=== PATIENT | female | born 1990 | race Caucasian/White ===

== ENCOUNTER 2018-04-03 18:47 | Emergency (ER) | payer OTHER, SELFPAY ==
--- NOTE | 2018-04-03 18:53 | ED.ABDPAIN ---
HPI - Abdominal Pain General Chief Complaint: Abdominal Pain Stated Complaint: SENT BY WALK IN FOR POS APPENDICITIS Time Seen by Provider: 04/03/18 18:53 Source: patient Mode of arrival: ambulatory Limitations: no limitations History of Present Illness HPI narrative: 27-year-old female sent over from the walk-in clinic for right lower quadrant abdominal pain and concern for appendicitis. Patient states that she started having symptoms yesterday. Some nausea but no vomiting. No fevers. States that she went to the walk-in clinic because she thought she was having a urinary tract infection because she also has dysuria and frequency and has had urinary tract infections in the past. Patient also states she has a history of ovarian cyst. She states this feels different than her diagnosis of ovarian cyst. Related Data Home Medications Medication Instructions Recorded Confirmed omeprazole 20 mg capsule,delayed 20 mg PO .PRN cap 04/03/18 04/03/18 release Previous Rx's Medication Instructions Recorded sulfamethoxazole-trimethoprim 1 tab PO BID 3 Days #6 tab 04/03/18 [Bactrim DS] Allergies Allergy/AdvReac Type Severity Reaction Status Date / Time azithromycin [From Zithromax] Allergy Verified 04/03/18 19:04 Review of Systems Constitutional Denies fever(s) ENT Ears, Nose, Mouth, and Throat: Denies vertigo and Denies dizziness Cardiovascular Denies chest pain and Denies dyspnea Respiratory Denies dyspnea Gastrointestinal Gastrointestinal: Reports abdominal pain, Reports nausea and Denies vomiting Genitourinary Reports dysuria, Reports urinary urgency and Denies vaginal discharge Musculoskeletal Denies myalgias and Denies arthralgias Integumentary/Breasts Denies rash Neurologic Denies vertigo and Denies dizziness Hematologic/Lymphatic Denies easy bleeding and Denies easy bruising [facility] Medical History Healthy adult (Acute) Social History Smoking Status: Never smoker alcohol intake: current Exam Initial Vital Signs Initial Vital Signs: Vital Signs Temperature 98.2 F 04/03/18 19:04 Pulse Rate 87 04/03/18 19:04 Respiratory Rate 16 04/03/18 19:04 Blood Pressure 127/87 04/03/18 19:04 Pulse Oximetry 100 04/03/18 19:04 Const General: cooperative, comfortable, well developed, well groomed and No acute distress Orientation: alert, awake and oriented x3 HENMT Head: normal to inspection and normocephalic Resp Effort & Inspection: normal respiratory effort Auscultation: clear to auscultation bilaterally Cardio Rate: regular rate Rhythm: regular rhythm GI Inspection: non-distended Palpation: soft, No firm and tender (Right lower quadrant) Skin Lesions: no lesions Rashes: no rashes Neuro General: alert, awake and oriented x3 Extrem General: normal to inspection and capillary refill normal Psych Appearance: grossly normal and well kempt Course Orders Ordered: ED Orders 04/03/18 19:09 Complete Blood Count AUTO DIFF Stat Comprehensive Metabolic Panel Stat Lipase Stat Procalcitonin Stat 04/03/18 19:16 Test Serum,Qual Stat 04/03/18 19:17 CT abdomen pelvis w con Stat 04/03/18 19:25 Lactate (Lactic Acid) Stat 04/03/18 20:52 Urinalysis and Microscopic Stat Urine Culture Stat Discontinued Medications Sodium Chloride (Normal Saline 0.9%) 1,000 mls @ 1,000 mls/hr IV BOLUS ONE Stop: 04/03/18 19:52 Last Infusion: 04/03/18 20:31 Dose: 0 mls/hr Admin: 04/03/18 19:29 Dose: 1,000 mls/hr Trimethoprim/Sulfamethoxazole (Bactrim Ds) 1 tab PO NOW ONE Stop: 04/03/18 21:10 Last Admin: 04/03/18 21:25 Dose: 1 tab Vital Signs - 8 hr 04/03/18 19:04 04/03/18 21:13 Temperature 98.2 F Pulse Rate 87 73 Respiratory Rate 16 16 Blood Pressure 127/87 Blood Pressure [Right Arm] 124/79 Pulse Oximetry 100 100 MDM - Abdominal Pain Medical Records Attestation: I reviewed the patient's medical records. Lab Data Attestation: I reviewed the patient's lab results. Result diagrams: 04/03/18 19:09 04/03/18 19:09 Lab Results 04/03/18 04/03/18 04/03/18 Range/Units 19: 19:09 19:09 WBC 9.6 (4.5-11.0) X10^3/uL RBC 4.82 (4.0-5.2) X10^6/uL Hgb 14.2 (12.0-16.0) g/dL Hct 41.6 (36-46) % MCV 86.4 (80-100) fL MCH 29.5 (26-34) PG MCHC 34.1 (30-36) % RDW 13.1 (11.6-14.8) % Plt Count 348 (150-400) X10^3/uL Neut % (Auto) 48.6 L (50-75) % Lymph % (Auto) 37.4 (25-40) % [place] % (Auto) 8.8 (3-14) % Eos % (Auto) 4.9 H (2-4) % Baso % (Auto) 0.3 (0-2) % Neut # (Auto) 4700 (7384-2908) /uL Sodium 143 (137-145) mmol/L Potassium 4.0 (3.4-5.1) mmol/L Chloride 103 (98-107) mmol/L Carbon Dioxide 26 (22-32) mmol/L BUN 13 (7-17) mg/dL Creatinine 0.70 (0.52-1.04) mg/dL Estimated GFR > 60.0 (>60) mL/min BUN/Creatinine Ratio 18.6 (6-22) Glucose 81 (70-100) mg/dL Lactate (0.7-2.1) mmol/L Calcium 9.3 (8.4-10.2) mg/dL Total Bilirubin 0.5 (0.2-1.3) mg/dL AST 34 (14-36) IU/L ALT 35 (9-52) IU/L Alkaline Phosphatase 97 (38-126) U/L Total Protein 7.7 (6.3-8.2) g/dL Albumin 4.4 (3.5-5.0) g/dL Globulin 3.3 (1.7-4.1) g/dL Albumin/Globulin Ratio 1.3 (1.0-2.8) Lipase 158 (23-300) U/L Procalcitonin < 0.05 (<0.5) ng/mL Serum , Qual (Negative) Urine Color Urine Appearance Urine pH (4.5-8.0) Ur Specific [place] (1.000-1.035) Urine Protein (Negative) Urine Glucose (UA) (Normal) g/dL Urine Ketones (NEGATIVE) Urine Occult Blood (Negative) Urine Nitrate (Negative) Urine Bilirubin (NEGATIVE) Urine Urobilinogen (0.2) E.U./dL Ur Leukocyte Esterase (NEGATIVE) Urine RBC (0-5/HPF) Urine WBC (0-5/HPF) Ur Squamous Epith Cells Urine Bacteria (None) Ur Culture Indicated? Micro UA Comment 04/03/18 04/03/18 04/03/18 Range/Units 19:16 19:25 20:52 WBC (4.5-11.0) X10^3/uL RBC (4.0-5.2) X10^6/uL Hgb (12.0-16.0) g/dL Hct (36-46) % MCV (80-100) fL MCH (26-34) PG MCHC (30-36) % RDW (11.6-14.8) % Plt Count (150-400) X10^3/uL Neut % (Auto) (50-75) % Lymph % (Auto) (25-40) % [place] % (Auto) (3-14) % Eos % (Auto) (2-4) % Baso % (Auto) (0-2) % Neut # (Auto) (9290-2508) /uL Sodium (137-145) mmol/L Potassium (3.4-5.1) mmol/L Chloride (98-107) mmol/L Carbon Dioxide (22-32) mmol/L BUN (7-17) mg/dL Creatinine (0.52-1.04) mg/dL Estimated GFR (>60) mL/min BUN/Creatinine Ratio (6-22) Glucose (70-100) mg/dL Lactate 0.8 (0.7-2.1) mmol/L Calcium (8.4-10.2) mg/dL Total Bilirubin (0.2-1.3) mg/dL AST (14-36) IU/L ALT (9-52) IU/L Alkaline Phosphatase (38-126) U/L Total Protein (6.3-8.2) g/dL Albumin (3.5-5.0) g/dL Globulin (1.7-4.1) g/dL Albumin/Globulin Ratio (1.0-2.8) Lipase (23-300) U/L Procalcitonin (<0.5) ng/mL Serum , Qual Negative (Negative) Urine Color Yellow Urine Appearance Clear Urine pH 7.0 (4.5-8.0) Ur Specific [place] <=1.005 (1.000-1.035) Urine Protein Negative (Negative) Urine Glucose (UA) Negative (Normal) g/dL Urine Ketones Negative (NEGATIVE) Urine Occult Blood Negative (Negative) Urine Nitrate Negative (Negative) Urine Bilirubin Negative (NEGATIVE) Urine Urobilinogen 0.2 (0.2) E.U./dL Ur Leukocyte Esterase Trace H (NEGATIVE) Urine RBC None seen (0-5/HPF) Urine WBC 0-1/hpf (0-5/HPF) Ur Squamous Epith Cells 0-1 /hpf Urine Bacteria Occasional (0-1) (None) Ur Culture Indicated? Specimen cultured Micro UA Comment Not Reportable Point of care testing: Point of Care Testing Test Results Negative Imaging Data CT scan - abdomen: Radiologist's impression: PROCEDURE: CT ABDOMEN PELVIS W CON INDICATIONS: Right-sided abdominal pain concern for appendicitis TECHNIQUE: After the administration of intravenous contrast, 5 mm thick sections acquired from the diaphragm to the symphysis. 5 mm coronal and sagittal reformats were acquired. For radiation dose reduction, the following was used: automated exposure control, adjustment of mA and/or kV according to patient size. COMPARISON: [facility], CT, ANGIO CHEST, 05/18/2010, 22:04. [facility], CT, ABD/PELVIS W/CON (PNL), 03/28/2014, 0:07. FINDINGS: Image quality: Excellent. ABDOMEN: Lung bases: Left basilar dependent atelectasis. Heart size is normal. Solid organs: A small 8 mm hepatic hypodensity left hepatic lobe appears unchanged since 03/28/2014, probably a cyst. Liver is normal in size and enhancement. Gallbladder is not well-seen, probably contracted. Biliary system is non dilated. Pancreas enhances normally. Spleen is normal in size and enhancement. No adrenal nodules. Kidneys demonstrate normal size and enhancement, without hydronephrosis. Peritoneum and bowel: Appendix is normal. Bowel loops demonstrate normal wall thickness and caliber. No free fluid or air. Nodes and vessels: There are numerous small mesenteric lymph nodes suggesting adenitis. No enlarged retroperitoneal or mesenteric lymph nodes are present. Aorta and inferior vena cava are normal in size. Miscellaneous: No ventral hernias. PELVIS: Genitourinary: Bladder wall thickness is normal. There is an IUD in uterus. No pathological free fluid. Miscellaneous: No inguinal hernias or adenopathy. Bones: No suspicious bony lesions. No vertebral body compression fractures. IMPRESSION: 1. No evidence for acute appendicitis. 2. Mild nonspecific mesenteric adenitis. 3. An IUD in uterus. Dictated by: Anthony Barcenas M.D. on 04/03/2018 at 20:25 Approved by: Anthony Barcenas M.D. on 04/03/2018 at 20:31 [facility] Narrative Medical decision making narrative: Patient with a benign abdominal exam. CT scan does not show any signs of appendicitis. Does not mention anything about ovarian cyst however the patient states that this pain is different from her prior diagnosis ovarian cyst. She does having dysuria. Does have leukocyte esterase and bacteria. Offered patient 2 options to include waiting until urine culture returns before we treat with any antibiotics were going ahead and treating today based on symptoms. The patient states she would like to be treated. She was given her 1st dose of antibiotics here in the ER. There was a culture obtained. Informed her that we would call if we needed to change his antibiotics. Will hold on further workup for now. She was given return precautions. She expressed understanding and agreement with plan. Discharge Plan Departure Patient Disposition: Home Clinical Impression: Abdominal pain, Urinary tract infection Discharge Date/Time: 04/03/18 21:29 Interventions: ED Discharge Assessment Last Done: 04/03/18 21:28 Instructions: DI for Urinary Tract Infection (UTI), DI for Acute Abdomen Activity Restrictions/Additional Instructions: Take the medication as directed. Call your primary care doctor for follow-up. Return to the emergency department for any new or worsening symptoms Prescriptions: New sulfamethoxazole-trimethoprim [Bactrim DS] 800-160 mg tablet 1 tab PO BID 3 Days Qty: 6 RF: 0 No Action omeprazole 20 mg capsule,delayed release(DR/EC) 20 mg PO .PRN RF: 0
[2018-04-03 19:04] VITALS: BP 127/87; PULSE 87; RESP 16; TEMP 36.8; O2SAT 100; BMI 45.6
--- NOTE | 2018-04-03 19:17 | DI.CT.S_ITS ---
PROCEDURE: CT ABDOMEN PELVIS W CON INDICATIONS: Right-sided abdominal pain concern for appendicitis TECHNIQUE: After the administration of intravenous contrast, 5 mm thick sections acquired from the diaphragm to the symphysis. 5 mm coronal and sagittal reformats were acquired. For radiation dose reduction, the following was used: automated exposure control, adjustment of mA and/or kV according to patient size. COMPARISON: [facility], CT, ANGIO CHEST, 05/18/2010, 22:04. [facility], CT, ABD/PELVIS W/CON (PNL), 03/28/2014, 0:07. FINDINGS: Image quality: Excellent. ABDOMEN: Lung bases: Left basilar dependent atelectasis. Heart size is normal. Solid organs: A small 8 mm hepatic hypodensity left hepatic lobe appears unchanged since 03/28/2014, probably a cyst. Liver is normal in size and enhancement. Gallbladder is not well-seen, probably contracted. Biliary system is non dilated. Pancreas enhances normally. Spleen is normal in size and enhancement. No adrenal nodules. Kidneys demonstrate normal size and enhancement, without hydronephrosis. Peritoneum and bowel: Appendix is normal. Bowel loops demonstrate normal wall thickness and caliber. No free fluid or air. Nodes and vessels: There are numerous small mesenteric lymph nodes suggesting adenitis. No enlarged retroperitoneal or mesenteric lymph nodes are present. Aorta and inferior vena cava are normal in size. Miscellaneous: No ventral hernias. PELVIS: Genitourinary: Bladder wall thickness is normal. There is an IUD in uterus. No pathological free fluid. Miscellaneous: No inguinal hernias or adenopathy. Bones: No suspicious bony lesions. No vertebral body compression fractures. IMPRESSION: 1. No evidence for acute appendicitis. 2. Mild nonspecific mesenteric adenitis. 3. An IUD in uterus. Dictated by: Anthony Barcenas M.D. on 04/03/2018 at 20:25 Approved by: Anthony Barcenas M.D. on 04/03/2018 at 20:31
[2018-04-03 19:20] LABS: Add Manual Diff / Slide Review NO; Basophils Percent Auto 0.3 % (0-2); Eosinophils Percent Auto 4.9 % (2-4); Hematocrit 41.6 % (36-46); Hemoglobin 14.2 g/dL (12.0-16.0); Lymphocytes Percent Auto 37.4 % (25-40); Mean Corpuscular HGB Conc 34.1 % (30-36); Mean Corpuscular Hemoglobin 29.5 PG (26-34); Mean Corpuscular Volume 86.4 fL (80-100); Monocytes Percent Auto 8.8 % (3-14); Neutrophils Absolute Auto 4700 /uL (1500-7000); Neutrophils Percent Auto 48.6 % (50-75); Platelet Count 348 X10^3/uL (150-400); Red Blood Cell Count 4.82 X10^6/uL (4.0-5.2); Red Cell Distribution Width 13.1 % (11.6-14.8); White Blood Cell Count 9.6 X10^3/uL (4.5-11.0)
[2018-04-03] MEDS: SODIUM CHLORIDE 0.9% 1,000 ML 1000 ML IV (19:29)
[2018-04-03 19:36] LABS: Alanine Aminotransferase 35 IU/L (9-52); Albumin 4.4 g/dL (3.5-5.0); Albumin Globulin Ratio 1.3 (1.0-2.8); Alkaline Phosphatase 97 U/L (38-126); Aspartate Aminotransferase 34 IU/L (14-36); BUN Creatinine Ratio 18.6 (6-22); Bilirubin Total 0.5 mg/dL (0.2-1.3); Blood Urea Nitrogen 13 mg/dL (7-17); Calcium 9.3 mg/dL (8.4-10.2); Carbon Dioxide 26 mmol/L (22-32); Chloride 103 mmol/L (98-107); Estimated Glomerular Filt Rate > 60.0 mL/min (>60); Globulin 3.3 g/dL (1.7-4.1); Glucose 81 mg/dL (70-100); HEMOLYSIS < 15 (0-50); Lipase 158 U/L (23-300); Sodium 143 mmol/L (137-145); Total Protein 7.7 g/dL (6.3-8.2)
[2018-04-03 19:44] LABS: Pregnancy Test Serum,Qual Negative (Negative)
[2018-04-03 19:45] LABS: Lactate (Lactic Acid) 0.8 mmol/L (0.7-2.1)
[2018-04-03 19:51] LABS: Procalcitonin < 0.05 ng/mL (<0.5)
[2018-04-03 20:53] LABS: RBC Urine None Seen (0-5/HPF)
[2018-04-03 20:54] LABS: Appearance Urine UA CLEAR; Bilirubin Urine UA NEGATIVE (NEGATIVE); Color Urine UA YELLOW; Glucose Urine UA NEGATIVE (Normal); Ketones Urine UA NEGATIVE (NEGATIVE); Leukocyte Esterase Urine UA TRACE (NEGATIVE); Nitrite Urine UA NEGATIVE (Negative); Occult Blood Urine UA NEGATIVE (Negative); Protein Urine UA NEGATIVE (Negative); Specific Gravity Urine UA <=1.005 (1.000-1.035); Urobilinogen Urine UA 0.2 E.U./dL (0.2)
[2018-04-03 21:02] LABS: Bacteria Urine Occasional (0-1); Culture Indicated Urine Specimen Cultured; Squamous Epithelial Cell Urine 0-1 /HPF; WBC Urine 0-1/HPF (0-5/HPF)
[2018-04-03 21:13] VITALS: BP 124/79; PULSE 73; RESP 16; O2SAT 100
[2018-04-03] MEDS: TRIMETH/SULFA 160/800 (DS) TABLET 1 TAB PO (21:25)
== END 2018-04-03 21:29 | disposition home or self-care (01) ==
PROVIDERS: Emergency Provider Emergency Medicine
DX: N39.0 Urinary tract infection, site not specified (principal); R10.9 Unspecified abdominal pain; R52 Pain, unspecified
CPT/HCPCS: 74177; 80053; 81001; 81025; 83605; 83690; 84145; 84703; 85025; 87077; 87086; 87147; 96360; 99283; 99285; Q9967

== ENCOUNTER 2018-06-04 02:20 | Emergency (ER) | payer OTHER, SELFPAY ==
[2018-06-04 02:22] VITALS: BP 135/108; PULSE 91; RESP 20; TEMP 36.8; O2SAT 99; BMI 38.0
--- NOTE | 2018-06-04 02:44 | ED.URI ---
HPI - URI/Sore Throat General Chief Complaint: Upper Respiratory Symptoms Stated Complaint: sore throat sharp neck pain on right Time Seen by Provider: 06/04/18 02:31 Source: patient Mode of arrival: ambulatory Limitations: no limitations History of Present Illness HPI Narrative: Patient is a 28-year-old female who presents with sore throat mostly on the right which started yesterday. She has actually had strep since April in been on 2 rounds of antibiotics the 1st was amoxicillin the 2nd with penicillin of both 10 days long and she finished penicillin 1 week ago. She has a referral to ENT but has yet to get into them. She was actually started on prednisone to help with her throat. But no antibiotics. She denies difficulty swallowing though it is actually painful. MD Complaint: fever and sore throat Related Data Home Medications Medication Instructions Recorded Confirmed omeprazole 20 mg capsule,delayed 20 mg PO .PRN cap 04/03/18 04/03/18 release Previous Rx's Medication Instructions Recorded amoxicillin-pot clavulanate 1 tab PO Q12H #20 tab 06/04/18 [Augmentin] Allergies Allergy/AdvReac Type Severity Reaction Status Date / Time azithromycin [From Zithromax] Allergy Verified 06/04/18 02:35 Review of Systems Review of Systems ROS Unobtainable: All systems reviewed & are unremarkable except as noted in HPI and below Constitutional Denies chills, Denies fever(s), Denies lethargy and Denies weakness ENT Ears, Nose, Mouth, and Throat: Reports as per HPI Cardiovascular Denies chest pain, Denies irregular heart rhythm, Denies lightheadedness, Denies palpitations, Denies dyspnea, Denies dyspnea on exertion and Denies orthopnea Respiratory Denies cough, Denies dyspnea, Denies dyspnea on exertion and Denies wheezing Gastrointestinal Gastrointestinal: Denies abdominal pain, Denies change in bowel habits, Denies diarrhea, Denies nausea and Denies vomiting Genitourinary Denies hematuria, Denies flank pain, Denies urinary incontinence and Denies urinary urgency Musculoskeletal Denies back pain, Denies muscle weakness, Denies numbness and Denies tingling Integumentary/Breasts Denies pruritus, Denies erythema, Denies rash and Denies wounds Neurologic Denies numbness, Denies tingling and Denies weakness Endocrine Denies palpitations Allergic/Immunologic Denies wheezing PFSH Medical History Healthy adult (Acute) Social History Smoking Status: Never smoker alcohol intake: current Social History Smoking Status: Never smoker alcohol intake: current Exam Initial Vital Signs Initial Vital Signs: Vital Signs Temperature 98.3 F 06/04/18 02:22 Pulse Rate 91 H 06/04/18 02:22 Respiratory Rate 20 06/04/18 02:22 Blood Pressure 135/108 H 06/04/18 02:22 Pulse Oximetry 99 06/04/18 02:22 GENERAL: alert well-appearing young female HEENT: Head atraumatic,EOMI, pupils reactive, neck is supple no cervical lymphadenopathy PHARYNX: Minimal erythema slightly exudative tonsils no uvular swelling or deviation is airway patent CARDIOVASCULAR: Regular rate and rhythm without murmurs, rubs or gallops. RESPIRATORY: Breath sounds equal bilaterally, no wheezes rales or rhonchi. EXTREMITIES: Normal range of motion, no clubbing or edema. Neurovascularly intact NEUROLOGICAL: Alert and oriented x4 SKIN: Warm, dry, no laceration, no petechiae, no rashes or lesions. Course Orders Ordered: Discontinued Medications Amoxicillin/Clavulanate Potassium (Augmentin 875-125 Mg) 1 tab PO NOW ONE Stop: 06/04/18 03:06 Last Admin: 06/04/18 03:12 Dose: 1 tab Vital Signs - 8 hr 06/04/18 02:22 06/04/18 03:21 Temperature 98.3 F 98.4 F Pulse Rate 91 H 83 Respiratory Rate 20 16 Blood Pressure 135/108 H 110/73 Pulse Oximetry 99 98 MDM - URI/Sore Throat Lab Data Point of Care Testing Rapid Strep A Positive MDM Narrative Medical decision making narrative: patient is still positive for strep, mono was considered. at this time patient has recurrent strep she has failed penicillin and amoxicillin will try Augmentin. Discharge Plan Departure Patient Disposition: Home Clinical Impression: Strep pharyngitis Discharge Date/Time: 06/04/18 03:21 Interventions: ED Discharge Assessment Last Done: 06/04/18 03:21 Instructions: DI for Strep Throat Activity Restrictions/Additional Instructions: *You have been diagnosed with Strep pharyngitis *What to do: he may return to work when you have been afebrile for 24 hrs, and overall feeling better. you still require ENT consultation for frequent recurrent strep *Continue to take medications as directed --> FAXED TO [facility] [place] Augmentin 875 twice daily for 10 days - finished prednisone prescription as previously prescribed *Follow up with your primary care provider in 2-3 days, ENT, Dr. Mock, call for follow-up appointment in 1-2 weeks *Return to ER if you should have inability to swallow, increasing pain, or any new, worsening or concerning symptoms Prescriptions: New amoxicillin-pot clavulanate [Augmentin] 875-125 mg tablet 1 tab PO Q12H Qty: 20 RF: 0 No Action omeprazole 20 mg capsule,delayed release(DR/EC) 20 mg PO .PRN RF: 0 Referrals: Chase Mock MD [Physician] - Stand Alone Forms: Work Release Note
[2018-06-04] MEDS: AMOXICILLIN/CLAV 875/125 MG 1 TAB PO (03:12)
[2018-06-04 03:21] VITALS: BP 110/73; PULSE 83; RESP 16; TEMP 36.9; O2SAT 98
== END 2018-06-04 03:21 | disposition home or self-care (01) ==
PROVIDERS: Emergency Provider Emergency Medicine
DX: J02.0 Streptococcal pharyngitis (principal)
CPT/HCPCS: 87880; 99282; 99283

== ENCOUNTER 2018-11-03 06:27 | Day surgery (SDC) | payer OTHER, SELFPAY ==
[2018-10-30 08:28] VITALS: BMI 50.0
[2018-11-03] VITALS (8 sets, daily range): BP systolic 116–158; BP diastolic 70–95; PULSE 73–88; RESP 10–18; TEMP 36.2–36.7; O2SAT 93–100; BMI 51.0
[2018-11-03] MEDS: OXYMETAZOLINE NASAL SPRAY 30 ML 2 SPRAYS NASAL (07:11)
[2018-11-03] MEDS: LACTATED RINGERS 1,000 ML 42 ML IV (07:19)
--- NOTE | 2018-11-03 07:27 | PM.PREOP ---
Pre-operative Note Interval Note History & Physical reviewed/Exam performed by Physician: Yes Changes to H&P: No
[2018-11-03] MEDS: LIDOCAINE 1% W/EPI INJ 5 ML INJ (08:13)
[2018-11-03] MEDS: BUPIVACAINE 0.25% W/ EPI (PF) 10 ML VIAL 5 ML INJ (08:14)
[2018-11-03] MEDS: fentaNYL 100 MCG/2 ML INJ IV ×2 (08:45→08:55)
--- NOTE | 2018-11-03 08:50 | PM.OP.1 ---
Operative Date/Time/Diagnoses Date of procedure: 11/03/18 Time of procedure: 08:50 Pre-op diagnosis: 1. Recurrent acute tonsillitis 2. Possible peritonsillar abscess 3. Chronic tonsillitis 4. Obstructive sleep apnea 5. Tonsillar hypertrophy Post-op diagnosis: same Procedure & Clinicians Procedure: Tonsillectomy and adenoidectomy Same procedure as scheduled: Yes Indications: 28-year-old female with the above diagnoses incompletely managed with medical therapy presents for the above procedure. Following discussion of the material risks benefits complications and alternatives, the patient elected to proceed Surgeon: Chase Mock Click Yes if Unassisted: Yes Anesthesia Type: General and Local Operative Notes Findings: Intact palate and single uvula and 3+ tonsils, inflamed, 2+ adenoids Closure Type: not applicable Specimen(s): none sent Estimated Blood Loss (mL): 10 Blood products transfused: none Procedure in detail: Following identification and confirmation of consent, she was brought to the operating room suite and general endotracheal anesthesia was administered. Head wrap and shoulder roll were placed. Mouth gag was inserted, red rubber catheter inserted through the right nostril and out the mouth to retract the soft palate. under indirect mirror visualization, the adenoid pad was ablated with suction electrocautery on a setting of 40. The left tonsil was resected in the subcapsular plane with suction electrocautery on a setting of 30 followed by hemostasis with same. Right side repeated in the same fashion. Anterior and posterior tonsillar pillars injected with a 1-1 mix of 1% lidocaine 1 100,000 epinephrine and 0.25% Marcaine with 1 to 805223 epinephrine. The procedure was completed without complication and she was extubated in the operating room and taken to recovery room in stable condition. Complications: none Condition: stable Disposition: same day surgery Plan for aftercare: DC home on CPAP
[2018-11-03] MEDS: OXYCODONE/ACETAMINOPHEN 5/325 TABLET 1 TAB PO (09:05)
== END 2018-11-03 09:31 | disposition home or self-care (01) ==
PROVIDERS: Visit Provider Otolaryngology
PROC: (CPT 42821; principal; 2018-11-03 07:45)
DX: J03.91 Acute recurrent tonsillitis, unspecified (principal); G47.33 Obstructive sleep apnea (adult) (pediatric)
CPT/HCPCS: 42821; J0330; J1100; J2250; J2405; J2704; J3010